=== PATIENT | female | born 1960 | race Caucasian/White ===

== ENCOUNTER 2018-02-05 06:43 | Day surgery (SDC) | payer OTHER ==
[2018-02-05] MEDS ORDERED: PROPOFOL 20 ML (08:50)
== END 2018-02-05 14:54 | disposition home or self-care (01) ==
LOC: GIL 06:43
DX: Z12.11 Encounter for screening for malignant neoplasm of colon (principal); K64.8 Other hemorrhoids; D12.3 Benign neoplasm of transverse colon; E78.5 Hyperlipidemia, unspecified
CPT/HCPCS: 45380; 88305

== ENCOUNTER 2018-04-30 06:09 | Day surgery (SDC) | payer OTHER ==
[2018-04-30] MEDS ORDERED: PROPOFOL 40 ML (07:32)
[2018-04-30] MEDS ORDERED: LIDOCAINE 2% (SDV) 5 ML INJ (07:32)
[2018-04-30] MEDS ORDERED: ONDANSETRON 4 MG INJ IV (08:00)
[2018-04-30] MEDS ORDERED: LABETALOL HCL 20MG INJ IV (08:00)
[2018-04-30] MEDS ORDERED: hydrALAzine 20 MG INJ IV (08:00)
[2018-04-30] MEDS ORDERED: EPHEDrine SULFATE 50 MG/5 ML SYG IV (08:00)
[2018-04-30] MEDS ORDERED: FENTAnyl 50 MCG/ML VIAL IV (08:00)
== END 2018-04-30 08:51 | disposition home or self-care (01) ==
LOC: GIL 06:09
DX: K29.00 Acute gastritis without bleeding (principal)
CPT/HCPCS: 43239; 88305; 88312; 88313

== ENCOUNTER 2018-08-20 06:13 | Day surgery (SDC) | payer OTHER ==
[2018-08-20] MEDS ORDERED: CEFAZOLIN 1 GM INJ (07:58)
[2018-08-20] MEDS ORDERED: PROPOFOL 40 ML (07:58)
[2018-08-20] MEDS ORDERED: ONDANSETRON 4 MG INJ (07:58)
[2018-08-20] MEDS ORDERED: FAMOTIDINE 20 MG INJ (07:58)
[2018-08-20] MEDS ORDERED: FENTAnyl 50 MCG/ML VIAL (07:58)
[2018-08-20] MEDS ORDERED: LIDOCAINE 2% (SDV) 5 ML INJ (07:59)
[2018-08-20] MEDS: ACETAMINOPHEN 500 MG TAB PO (08:53)
[2018-08-20] MEDS ORDERED: DESFLURANE 15 MIN (09:00)
[2018-08-20] MEDS ORDERED: DIPHENHYDRAMINE 50 MG INJ IV (10:00)
[2018-08-20] MEDS ORDERED: ONDANSETRON 4 MG INJ IV (10:00)
[2018-08-20] MEDS ORDERED: morphine 2 MG INJ IV ×2 (10:00)
[2018-08-20] MEDS ORDERED: HYDROmorphONE 1 MG/5 ML IV SYRINGE IV ×3 (10:00)
[2018-08-20] MEDS ORDERED: LABETALOL HCL 20MG INJ IV (10:00)
[2018-08-20] MEDS ORDERED: FENTAnyl 50 MCG/ML VIAL IV ×2 (10:00)
[2018-08-20] MEDS ORDERED: OXYCODONE/ACETAMINOPHEN (5/325) TAB PO ×2 (10:00)
[2018-08-20] MEDS ORDERED: MEPERIDINE 25 MG INJ IV (10:00)
[2018-08-20] MEDS ORDERED: ALBUTEROL 0.083% (NEB) 2.5 MG/3 ML AMP HHN (10:00)
[2018-08-20] MEDS ORDERED: ACETAMINOPHEN 325 MG TAB PO (11:30)
== END 2018-08-20 12:32 | disposition home or self-care (01) ==
LOC: SDS 06:13
DX: R93.89 Abnormal findings on diagnostic imaging of other specified body structures (principal); E78.00 Pure hypercholesterolemia, unspecified; Z78.0 Asymptomatic menopausal state
CPT/HCPCS: 58120; 84702; 84703; 86850; 86900; 86901